=== PATIENT | male | born 1950 | race Caucasian/White ===

== ENCOUNTER 2024-03-03 06:31 | Day surgery (SDC) | payer MEDICARE, OTHER, SELFPAY ==
[2024-03-03 08:09] VITALS: BMI 22.3
[2024-03-03 08:10] VITALS: BP 187/87
[2024-03-03 08:20] VITALS: BMI 22.3
[2024-03-03 08:24] LABS: Glucose - Point of Care 148 mg/dl (70-99)
[2024-03-03 10:45] VITALS: BP 145/76
[2024-03-03 10:56] LABS: Glucose - Point of Care 125 mg/dl (70-99)
[2024-03-03 11:00] VITALS: BP 191/76
[2024-03-03 11:03] VITALS: BP 192/68
[2024-03-03 11:15] VITALS: BP 187/73
== END 2024-03-03 11:25 | disposition home or self-care (01) ==
LOC: GI 06:31
PROVIDERS: ATTENDING PHYSICIAN Internal Medicine Gastroenterology
DX: Z12.11 Encounter for screening for malignant neoplasm of colon (principal); K51.40 Inflammatory polyps of colon without complications; D12.3 Benign neoplasm of transverse colon; K57.30 Diverticulosis of large intestine without perforation or abscess without bleeding; K64.0 First degree hemorrhoids; T18.4XXA Foreign body in colon, initial encounter; Y93.89 Activity, other specified; Z86.010 Personal history of colon polyps; Z98.890 Other specified postprocedural states
CPT/HCPCS: 45385; 45379; 88305; 82962

== ENCOUNTER → 2025-01-18 08:53 | Outpatient (REF) | payer MEDICARE, OTHER, SELFPAY ==
[2025-01-18 11:34] LABS: Hematocrit 44.9 % (39.0-52.0); Hemoglobin 15.1 g/dL (13.0-18.0); Mean Corp Hgb Conc. 33.6 g/dL (33.0-37.0); Mean Corpuscular Volume 89.3 fL (80.0-94.0); Mean Platelet Volume 11.2 fL (7.4-10.4); Platelet Count 184 10^3/uL (130-400); Red Blood Cell Count 5.03 10^6/uL (4.70-6.10); Red Cell Dist. Width 15.8 % (11.5-14.5); White Blood Cell Count 10.9 10^3/uL (4.8-10.8)
[2025-01-18 12:18] LABS: Blood Urea Nitrogen 9 mg/dl (9-20); Calcium 9.1 mg/dl (8.4-10.2); Carbon Dioxide 28 mmol/L (22-30); Chloride 102 mmol/L (98-107); Glucose 142 mg/dl (70-99); Sodium 140 mmol/L (135-145); eGFR > 60.00
== END ==
LOC: SDSPAT 08:53
PROVIDERS: ATTENDING PHYSICIAN Surgery; FAMILY PHYSICIAN Family Medicine Adult Medicine
DX: Z01.818 Encounter for other preprocedural examination (principal)
CPT/HCPCS: 36415; 80048; 85027

== ENCOUNTER 2025-01-25 06:20 | Day surgery (SDC) | payer MEDICARE, OTHER, SELFPAY ==
[2025-01-18 13:47] VITALS: BMI 21.2
[2025-01-25] VITALS (12 sets, daily range): BP systolic 126–165; BP diastolic 45–94; BMI 21.2
[2025-01-25] MEDS: NORMOSOL-R/PLASMALYTE-A 1000 IV (07:58)
[2025-01-25 08:06] LABS: Glucose - Point of Care 139 mg/dl (70-99)
--- NOTE | 2025-01-25 09:38 | W.IMMPOSTOP ---
Surgical Immed Post Op Note
-
Primary Surgeon: Radha
Pre-op Diagnosis: BPH with LUTS
Post-op Diagnosis: Same
Procedure Performed:
1. Urethral dilation/calibration
2. TURP
Anesthesia Type: LMA
Specimen / Cultures: Prostate chips/None
Estimated Blood Loss: 2 cc
Drains: 22Fr 3-way catheter (30 cc in balloon)
Complications: None
Operative Findings:
- coapting/lateral lobe obstruction w/ CHOI - complete resection down to prostatic capsule w/ widely patent prostatic urethral channel on final cystoscopy
- bilateral UOs/verumontanum/external urethral sphincter uninvolved w/ margins of resection
Daughter (Haleigh) updated post-op via telephone.
Admit to PSR for CBI o/n.
[2025-01-25 09:59] LABS: Glucose - Point of Care 140 mg/dl (70-99)
[2025-01-25] MEDS: DETROL LA 4 MG PO (10:02)
--- NOTE | 2025-01-25 13:55 | CM ---
CM spoke with dtr as pt resting after procedure today
Pt resides alone in a 2 SH with 1 ELIF
Pt sleeps in a recliner on the 1st floor
He has a full flight to 2nd floor bathroom where he bathes
Pt is indep with his ADLs without ADs, has a SPC and WW for use as needed
Dtr resides in the same community as pt and available for assistance at home as needed
PCP- Ga Santo
Rx- Kiara Tong
Discharge Disposition- anticipate home no needs
--- NOTE | 2025-01-25 16:28 | PTCARENOTE ---
Pt received from PACU. Pt denying pain. CBI infusing; pink/clear output.
[2025-01-25 17:06] LABS: Glucose - Point of Care 260 mg/dl (70-99)
[2025-01-25] MEDS: GLUCOPHAGE 1000 MG PO (17:35)
[2025-01-25] MEDS: LANTUS 0.04 UNITS SC (21:50)
[2025-01-25 21:57] LABS: Glucose - Point of Care 248 mg/dl (70-99)
[2025-01-26 07:00] VITALS: BP 147/65
[2025-01-26 07:55] LABS: % Basophils 0.4 % (0-2); % Immature Granulocytes 0.4 % (0-0.5); % Lymphocytes 12.8 % (20.5-51.1); % Neutrophils 79.4 % (42.2-75.2); Absolute Basophils 0.1 10^3/uL (0-0.2); Absolute Immature Granulocytes 0.1 10^3/uL (0-0.05); Absolute Lymphocytes 1.6 10^3/uL (1.2-3.4); Absolute Monocytes 0.9 10^3/uL (0.1-0.6); Absolute Neutrophils 9.7 10^3/uL (1.4-6.5); Hematocrit 37.1 % (39.0-52.0); Hemoglobin 12.9 g/dL (13.0-18.0); Mean Corp Hgb Conc. 34.8 g/dL (33.0-37.0); Mean Corpuscular Hgb 29.9 pg (27.0-31.0); Mean Corpuscular Volume 85.9 fL (80.0-94.0); Mean Platelet Volume 10.1 fL (7.4-10.4); Nucleated Red Blood Cells % 0 % (-); Platelet Count 178 10^3/uL (130-400); Red Blood Cell Count 4.32 10^6/uL (4.70-6.10); Red Cell Dist. Width 14.8 % (11.5-14.5); White Blood Cell Count 12.2 10^3/uL (4.8-10.8)
[2025-01-26 08:35] LABS: Blood Urea Nitrogen 12 mg/dl (9-20); Calcium 8.4 mg/dl (8.4-10.2); Carbon Dioxide 30 mmol/L (22-30); Chloride 107 mmol/L (98-107); Estimated Creatinine Clearance 91 ml/min; Glucose 139 mg/dl (70-99); Potassium 3.4 mmol/L (3.5-5.1); Sodium 139 mmol/L (135-145); eGFR > 60.00
[2025-01-26 09:06] LABS: Glucose - Point of Care 139 mg/dl (70-99)
[2025-01-26] MEDS: LIPITOR 20 MG PO (09:54)
[2025-01-26] MEDS: PEPCID 40 MG PO (09:54)
[2025-01-26] MEDS: NORVASC 5 MG PO (09:54)
[2025-01-26] MEDS: AMARYL 2 MG PO (09:54)
[2025-01-26] MEDS: TOPROL XL 100 MG PO (09:54)
[2025-01-26] MEDS: COZAAR 100 MG PO (09:54)
[2025-01-26] MEDS: GLUCOPHAGE 1000 MG PO (09:54)
[2025-01-26] MEDS: OSCAL 500 + D 500 MG PO (09:54)
[2025-01-26] MEDS: VISBIOME 1 CAP PO (09:54)
[2025-01-26] MEDS: THERAGRAN 1 TABLET PO (09:55)
[2025-01-26 11:00] VITALS: BP 182/73
[2025-01-26] MEDS: Pyridium 200 MG PO (12:18)
--- NOTE | 2025-01-26 12:38 | W.DS.TRANS ---
DC Summary - Chemistry Technologist
-
Discharge Instructions:
Sleep Apnea Risk Intermediate
Discharge Diagnosis/Procedures BPH s/p TURP
Diet Diabetic, Carb Controlled
Activity No strenuous activity
Additional Activity No strenuous exercise, heaving lifting, or
sexual activity x7 days after procedure
Driving Restrictions No driving for 24 hours
Bathing Restrictions None
Blood Work n/a
Wound Care n/a
Instructions:
Stand-Alone Forms:
Changes to Home Medications: No
Discharge Medications:
DC Medications w/original date entered in [facility]
losartan 50 mg tablet 100 mg PO DAILY 10/26/15
atorvastatin 20 mg tablet 20 mg PO DAILY 07/22/19
metformin 1,000 mg tablet 1,000 mg PO BID@0800,1700 07/22/19
metoprolol succinate 100 mg tablet,extended release 24 hr 100 mg PO DAILY 07/22/19
clopidogrel 75 mg tablet 75 mg PO DAILY 07/29/19
acetaminophen 650 mg tablet,extended release (Tylenol Arthritis Pain) 1,300 mg PO Q8HPRN PRN w/tramadol for pain 11/04/19
amlodipine 5 mg tablet 5 mg PO DAILY 11/04/19
famotidine 40 mg tablet 40 mg PO DAILY 11/04/19
glimepiride 2 mg tablet 2 mg PO DAILY 11/04/19
insulin glargine 100 unit/mL (3 mL) subcutaneous pen (Lantus Solostar U-100 Insulin) 4 units SC HS PRN elevated blood sugar 11/04/19
Antidiarrheal 1 dose PO DAILY 01/19/25
Lactobacillus acidophilus 10 billion cell capsule (Probiotic) 10,000 mmu cells PO DAILY 01/19/25
calcium 500 mg (as carbonate)-vitamin D3 3.125 mcg (125 unit) tablet 1 tab PO DAILY 01/19/25
ginkgo biloba 40 mg tablet 40 mg PO DAILY 01/19/25
methotrexate sodium 2.5 mg tablet 10 mg PO QWEEK 01/19/25
multivitamin with minerals-folic acid 12 mcg chewable tablet (Centrum Adults) 1 tab PO DAILY 01/19/25
nitroglycerin 0.4 mg sublingual tablet 0.4 mg sublingual Q5M PRN chest pain 01/19/25
amoxicillin 500 mg-potassium clavulanate 125 mg tablet (Augmentin) 1 tab PO BID 5 days #10 tabs 01/26/25
phenazopyridine 200 mg tablet (Pyridium) 200 mg PO BID PRN dysuria 3 days #6 tabs 01/26/25
Home Medication Changes
Pending Results: Yes
Total time spent discharging patient (in min): surgical pathology
--- NOTE | 2025-01-26 12:38 | W.PN.URO.CBU ---
Today's Communication / Plan
-
D/c home this afternoon after voiding
eRx sent for Pyridium + Augmentin
Hold Plavix until Th01/28
F/U in 1 mo for post-op visit (office will call to schedule)
D/w RN.
D/w patient.
Assessment / Plan
-
BPH
01/25: s/p TURP
Diagnosis
-
Date of Service: January 26, 2025
-
Patient Diagnosis:
BPH w/ LUTS
Post Op Day:
01/25: s/p TURP
Subjective
-
Voiding small amounts of blood-tinged urine (catheter removed ~3-4 hrs ago).
Denies pain or discomfort.
Objective
-
Vital Signs
Temp Pulse Resp BP Pulse Ox
97.9 F 57 18 182/73 100
01/26/25 11:00 01/26/25 11:00 01/26/25 11:00 01/26/25 11:00 01/26/25 11:00
Intake and Output
01/25/25 01/26/25 01/27/25
06:59 06:59 06:59
Intake Total 1080 / 1080
Output Total 1200 / 1200 75 / 75
Balance -120 / -120 -75 / -75
Intake:
Oral fluids 780 / 780
IV fluids (Total) 300 / 300
Normosal 300 / 300
Output:
Urine, Voided 75 / 75
True Urine Output from CBI 1200 / 1200
Other:
How many times incontinent 1
MODERATE amount urine
Laboratory Results
01/26/25 07:44
01/26/25 07:44
Physical Exam
-
General - well developed, well nourished, no acute distress
Abdomen - soft, non-tender, non-distended
Genitalia - normal
Skin - warm & dry with no rash
Neuro - AOx3, no motor deficits
Extremities - no clubbing, no cyanosis, no edema
Care Review
Data Reviewed
Discussed with: Nursing and Family
Total Time Spent with Patient (in minutes): 20
[2025-01-26 13:15] LABS: Glucose - Point of Care 136 mg/dl (70-99)
--- NOTE | 2025-01-26 13:43 | CM ---
MD entered order for discharge.
Spoke with pt he said he will be driving himself home today.
He said MD gave him permission.
Offered VN he declined need.
PLAN Home no needs
[2025-01-26 15:00] VITALS: BP 168/67
--- NOTE | 2025-01-26 15:34 | PTCARENOTE ---
Patient is voiding bloody urine without difficulty. Patient voided multiple times 50-100. Patient just voided 250 ml. Patient is ambulating in halls with a steady gait. patient tolerated 100% of regular diet. patient is eager to go home.
== END 2025-01-26 16:38 | disposition home or self-care (01) ==
LOC: SDS 06:20
PROVIDERS: ATTENDING PHYSICIAN Surgery; FAMILY PHYSICIAN Family Medicine Adult Medicine
DX: N40.1 Benign prostatic hyperplasia with lower urinary tract symptoms (principal); N13.8 Other obstructive and reflux uropathy; N39.498 Other specified urinary incontinence; R35.0 Frequency of micturition
CPT/HCPCS: 52601; 88305; 80048; 82962; 85025